=== PATIENT | female | born 1930 | race African-American/Black ===

== ENCOUNTER 2018-10-15 02:38 | Inpatient (IN) | payer OTHER, MEDICAID ==
[2018-10-15] VITALS (10 sets, daily range): BP systolic 92–179; BP diastolic 34–98
[~2018-10-15] VITALS: Ht 170.2 cm; Wt 53.7 kg
[~2018-10-15 02:38] MED LIST: AMLO10TA80 PO; ASPIRIN; CLAR10 PO; COLACE; GABAPENTIN; HYDR30CR80 TP; LORA10TA7 PO; LOSA1TAB34 PO; LOSARTAN; VICODIN
[2018-10-15] MEDS ORDERED: ALBUTEROL (0.083%) 2.5MG/3ML NEB HHN STA (03:18)
[2018-10-15] MEDS ORDERED: IPRATROPIUM BROMIDE (0.02%) 0.5MG/2.5ML NEB HHN STA (03:18)
[2018-10-15 03:57] LABS: BASOPHILS % 0.9 % (0.0-2.0); EOSINOPHILS % 2.3 % (0.0-5.0); HEMATOCRIT. 36.8 % (36.0-48.0); HEMOGLOBIN. 11.6 g/dL (12.0-16.0); MEAN CORPUSCULAR HEMOGLOBIN 25.6 pg (28.0-32.0); MEAN CORPUSCULAR VOLUME 81.2 fL (81.0-99.0); MEAN PLATELET VOLUME 9.4 fl (7.4-10.4); MONOCYTES % 5.3 % (2.0-8.0); NEUTROPHILS % 53.5 % (40.0-76.0); PLATELET 177 x1000/uL (130-400); RED BLOOD CELL COUNT 4.53 mill/uL (4.2-5.4); RED CELL DISTRIBUTION WIDTH 16.4 % (11.6-14.6)
[2018-10-15 04:10] LABS: CHLORIDE 114 mEq/L (98-107)
[2018-10-15] MEDS ORDERED: IPRATROPIUM/ALBUTEROL 0.5-3(2.5)MG/3ML NEB INH PRN (09:30)
[2018-10-15] MEDS ORDERED: ACETAMINOPHEN 325MG TABLET PO PRN (09:30)
[2018-10-15] MEDS ORDERED: CLONIDINE 0.1MG TABLET PO PRN (09:30)
[2018-10-15] MEDS ORDERED: MAGNESIUM/ALUMINUM HYDROXIDE/SIMETHICONE 30ML UDC PO PRN (09:30)
[2018-10-15] MEDS ORDERED: GUAIFENESIN 200MG/10ML SUGAR FREE UDC PO PRN (09:30)
[2018-10-15] MEDS ORDERED: ONDANSETRON HCL 4MG/2ML INJ IV PRN (09:30)
[2018-10-15] MEDS ORDERED: DIPHENHYDRAMINE 50MG/ML VIAL IV PRN (09:30)
[2018-10-15 09:45] LABS: PHOSPHORUS 2.3 mg/dL (2.5-4.9)
[2018-10-15] MEDS ORDERED: ENOXAPARIN 30MG/0.3ML SYR SUBCUT SCH (10:15)
[2018-10-15 15:19] LABS: CREATINE KINASE MB FRACTION 1.5 ng/mL (0.5-3.6)
[2018-10-15] MEDS: FUROSEMIDE 20MG/2ML VIAL IVP SCH (15:53)
[2018-10-15] MEDS: DILTIAZEM HCL 30MG TABLET PO SCH (21:53)
[2018-10-15] MEDS: NITROGLYCERIN OINT 1GM/INCH UDPKT TD SCH (21:53)
[2018-10-15] MEDS: HYDROCODONE/ACETAMINOPHEN 5/325MG TABLET PO PRN (22:05)
[2018-10-16] VITALS (14 sets, daily range): BP systolic 107–140; BP diastolic 54–93
[2018-10-16 00:22] LABS: CREATINE KINASE MB FRACTION 1.4 ng/mL (0.5-3.6)
[2018-10-16] MEDS: NITROGLYCERIN OINT 1GM/INCH UDPKT TD SCH ×3 (05:15→21:14)
[2018-10-16] MEDS: DILTIAZEM HCL 30MG TABLET PO SCH ×3 (05:30→21:15)
[2018-10-16 05:56] LABS: CHLORIDE 114 mEq/L (98-107)
[2018-10-16 06:03] LABS: EOSINOPHILS % 4.5 % (0.0-5.0); HEMATOCRIT. 33.9 % (36.0-48.0); LYMPHOCYTES % 46.9 % (20.0-50.0); MEAN CORPUSCULAR HEMOGLOBIN 25.9 pg (28.0-32.0); MEAN PLATELET VOLUME 9.4 fl (7.4-10.4); NEUTROPHILS % 41.6 % (40.0-76.0); PLATELET 172 x1000/uL (130-400); RED BLOOD CELL COUNT 4.24 mill/uL (4.2-5.4); RED CELL DISTRIBUTION WIDTH 15.9 % (11.6-14.6)
[2018-10-16 06:05] LABS: LDL CHOLESTEROL 53 mg/dL (5-100)
[2018-10-16 06:07] LABS: HDL CHOLESTEROL 57 mg/dL (40-59)
[2018-10-16] MEDS: ENOXAPARIN 30MG/0.3ML SYR SUBCUT SCH (08:49)
[2018-10-16] MEDS: FUROSEMIDE 20MG/2ML VIAL IVP SCH (08:49)
[2018-10-16] MEDS: SIMETHICONE 80MG TABLET CHEW PO SCH ×3 (13:31→21:14)
[2018-10-16] MEDS: PHENYLEPHRINE/SHK LV/MO/PET,WH RECTAL OINT 28GM PR SCH ×2 (17:09→23:42)
[2018-10-16] MEDS: PSEUDOEPHEDRINE HCL 30MG TABLET PO PRN (18:01)
[2018-10-16] MEDS: DOCUSATE SODIUM 100MG CAPSULE PO PRN (18:01)
[2018-10-16] MEDS: HYDROCODONE/ACETAMINOPHEN 5/325MG TABLET PO PRN (21:20)
[2018-10-17] VITALS (11 sets, daily range): BP systolic 109–128; BP diastolic 47–85
[2018-10-17] MEDS: DILTIAZEM HCL 30MG TABLET PO SCH (06:00)
[2018-10-17] MEDS: NITROGLYCERIN OINT 1GM/INCH UDPKT TD SCH (06:03)
[2018-10-17] MEDS: PHENYLEPHRINE/SHK LV/MO/PET,WH RECTAL OINT 28GM PR SCH ×3 (06:04→17:31)
[2018-10-17 06:24] LABS: HEMATOCRIT. 35.3 % (36.0-48.0); HEMOGLOBIN. 11.3 g/dL (12.0-16.0); LYMPHOCYTES % 45.8 % (20.0-50.0); MEAN CORPUSCULAR HEMOGLOBIN 25.8 pg (28.0-32.0); MEAN CORPUSCULAR VOLUME 80.9 fL (81.0-99.0); MEAN PLATELET VOLUME 9.5 fl (7.4-10.4); MONOCYTES % 7.1 % (2.0-8.0); NEUTROPHILS % 40.1 % (40.0-76.0); PLATELET 176 x1000/uL (130-400); RED BLOOD CELL COUNT 4.36 mill/uL (4.2-5.4); RED CELL DISTRIBUTION WIDTH 16.3 % (11.6-14.6)
[2018-10-17] MEDS ORDERED: LIDOCAINE HCL 1% 20ML VIAL (Pyxis) INJ ONE (08:27)
[2018-10-17] MEDS: ENOXAPARIN 30MG/0.3ML SYR SUBCUT SCH (09:19)
[2018-10-17] MEDS: FUROSEMIDE 20MG/2ML VIAL IVP SCH (09:19)
[2018-10-17] MEDS: SIMETHICONE 80MG TABLET CHEW PO SCH ×4 (09:20→21:03)
[2018-10-17] MEDS: CLOPIDOGREL 75MG TABLET PO SCH (10:54)
[2018-10-17] MEDS: ASPIRIN 81MG EC TABLET PO SCH (10:54)
[2018-10-17] MEDS: DILTIAZEM HCL 120MG CAPSULE CD 24HR PO SCH (10:55)
[2018-10-17] MEDS: PSEUDOEPHEDRINE HCL 30MG TABLET PO PRN (10:58)
[2018-10-17] MEDS: DOCUSATE SODIUM 100MG CAPSULE PO PRN (10:58)
[2018-10-17] MEDS: HYDROCODONE/ACETAMINOPHEN 5/325MG TABLET PO PRN (21:12)
[2018-10-18] VITALS (9 sets, daily range): BP systolic 99–142; BP diastolic 39–73
[2018-10-18] MEDS: PHENYLEPHRINE/SHK LV/MO/PET,WH RECTAL OINT 28GM PR SCH ×3 (06:00→12:02)
[2018-10-18 06:30] LABS: BASOPHILS % 0.7 % (0.0-2.0); EOSINOPHILS % 5.7 % (0.0-5.0); HEMATOCRIT. 34.2 % (36.0-48.0); LYMPHOCYTES % 49.4 % (20.0-50.0); MEAN CORPUSCULAR HEMOGLOBIN 26.2 pg (28.0-32.0); MEAN CORPUSCULAR VOLUME 81.3 fL (81.0-99.0); MEAN PLATELET VOLUME 9.4 fl (7.4-10.4); MONOCYTES % 6.4 % (2.0-8.0); NEUTROPHILS % 37.8 % (40.0-76.0); PLATELET 172 x1000/uL (130-400); RED BLOOD CELL COUNT 4.21 mill/uL (4.2-5.4); RED CELL DISTRIBUTION WIDTH 16.2 % (11.6-14.6)
[2018-10-18] MEDS: CLOPIDOGREL 75MG TABLET PO SCH (08:37)
[2018-10-18] MEDS: ENOXAPARIN 30MG/0.3ML SYR SUBCUT SCH (08:37)
[2018-10-18] MEDS: ASPIRIN 81MG EC TABLET PO SCH (08:37)
[2018-10-18] MEDS: DILTIAZEM HCL 120MG CAPSULE CD 24HR PO SCH (08:37)
[2018-10-18] MEDS: SIMETHICONE 80MG TABLET CHEW PO SCH ×2 (08:37→13:24)
== END 2018-10-18 15:05 | disposition home or self-care (01) | DRG 205 ==
LOC: ER 02:38 → 5EST 05:34 → CANRESERV 07:04 → ENRESERV 07:04
PROVIDERS: ADMIT Internal Medicine; ATTEND Internal Medicine
DX: M94.0 Chondrocostal junction syndrome [Tietze] (principal); I50.31 Acute diastolic (congestive) heart failure; I13.0 Hypertensive heart and chronic kidney disease with heart failure and stage 1 through stage 4 chronic kidney disease, or unspecified chronic kidney disease; I42.9 Cardiomyopathy, unspecified; I50.9 Heart failure, unspecified; J44.9 Chronic obstructive pulmonary disease, unspecified; I27.20 Pulmonary hypertension, unspecified; J40 Bronchitis, not specified as acute or chronic; N28.9 Disorder of kidney and ureter, unspecified; F17.200 Nicotine dependence, unspecified, uncomplicated; K21.9 Gastro-esophageal reflux disease without esophagitis; I25.10 Atherosclerotic heart disease of native coronary artery without angina pectoris; N18.2 Chronic kidney disease, stage 2 (mild); M19.90 Unspecified osteoarthritis, unspecified site; Z79.899 Other long term (current) drug therapy; Z79.82 Long term (current) use of aspirin; Z88.2 Allergy status to sulfonamides; Z88.0 Allergy status to penicillin
CPT/HCPCS: 36415; 71045; 80048; 80061; 82550; 82553; 83605; 83735; 83880; 84100; 84443; 84484; 93005; 93306; 93970; 94640; 96372; 99291; J1650; J1940; J2405; J3490; J7611

== ENCOUNTER 2020-08-23 14:38 | Emergency (ER) | payer OTHER, MEDICAID ==
[~2020-08-23] VITALS: Ht 165.1 cm; Wt 46.0 kg
[~2020-08-23 14:38] MED LIST changes: +ALBU6.7H9 INH; -AMLO10TA80 PO; +ASPI-1406 MT; -ASPIRIN; +CARV3.1242 MT; +CHOL400D7 PO; -CLAR10 PO; -COLACE; +CRES10 MT; +FLUT100B INH; +FURO-152 MT; -GABAPENTIN; -HYDR30CR80 TP; +LORA10TA7 MT; -LORA10TA7 PO; -LOSA1TAB34 PO; -LOSARTAN; +PANT40GR; -VICODIN
[2020-08-23] MEDS ORDERED: ALBUTEROL (0.083%) 2.5MG/3ML NEB HHN STA (16:41)
[2020-08-23] MEDS ORDERED: METHYLPREDNISOLONE SOD SUCC 125 MG/2 ML VIAL IV STA (16:41)
[2020-08-23] MEDS ORDERED: IPRATROPIUM BROMIDE (0.02%) 0.5MG/2.5ML NEB HHN STA (16:41)
[2020-08-23 17:15] LABS: BASOPHILS % 0.3 % (0.0-2.0); HEMATOCRIT. 34.7 % (36.0-48.0); HEMOGLOBIN. 11.1 g/dL (12.0-16.0); LYMPHOCYTES % 29.9 % (20.0-50.0); MEAN CORPUSCULAR HEMOGLOBIN 26.8 pg (28.0-32.0); MEAN CORPUSCULAR VOLUME 83.5 fL (81.0-99.0); MEAN PLATELET VOLUME 9.1 fl (7.4-10.4); MONOCYTES % 5.2 % (2.0-8.0); NEUTROPHILS % 64.6 % (40.0-76.0); PLATELET 198 x1000/uL (130-400); RED BLOOD CELL COUNT 4.16 mill/uL (4.2-5.4); RED CELL DISTRIBUTION WIDTH 16.9 % (11.6-14.6)
[2020-08-23 17:25] LABS: CHLORIDE 106 mEq/L (98-107)
[2020-08-23] MEDS ORDERED: LEVOFLOXACIN 750MG PREMIX 150 ML IV ONE (17:30)
[2020-08-24 00:30] VITALS: BP 128/35
== END 2020-08-24 00:56 | disposition short-term general hospital (02) ==
LOC: ER 14:38 → CANBEDREQ 22:13 → ER 08-24 00:56
DX: J44.1 Chronic obstructive pulmonary disease with (acute) exacerbation (principal); I11.0 Hypertensive heart disease with heart failure; I50.9 Heart failure, unspecified; Z79.82 Long term (current) use of aspirin; Z79.899 Other long term (current) drug therapy; Z88.0 Allergy status to penicillin; Z88.2 Allergy status to sulfonamides; Z20.822 Contact with and (suspected) exposure to COVID-19
CPT/HCPCS: 36415; 71045; 80053; 83880; 84484; 85025; 87426; 93005; 94640; 96365; 96366; 96375; 99285; J1956; J2930

== ENCOUNTER 2020-08-29 21:33 | Inpatient (IN) | payer OTHER, MEDICARE, MEDICAID ==
[~2020-08-29] VITALS: Ht 162.6 cm; Wt 45.4 kg
[2020-08-29 22:51] LABS: BASOPHILS % 0.4 % (0.0-2.0); HEMOGLOBIN. 11.3 g/dL (12.0-16.0); LYMPHOCYTES % 29.6 % (20.0-50.0); MEAN CORPUSCULAR VOLUME 80.8 fL (81.0-99.0); MONOCYTES % 8.2 % (2.0-8.0); NEUTROPHILS % 60.8 % (40.0-76.0); PLATELET 207 x1000/uL (130-400); RED BLOOD CELL COUNT 4.34 mill/uL (4.2-5.4); RED CELL DISTRIBUTION WIDTH 16.4 % (11.6-14.6)
[2020-08-29 22:55] LABS: CHLORIDE 105 mEq/L (98-107)
[2020-08-29] MEDS ORDERED: ENOXAPARIN 60MG/0.6ML SYR SUBCUT ONE (23:45)
[2020-08-29] MEDS ORDERED: ASPIRIN 325MG EC TABLET PO ONE (23:45)
[2020-08-30] VITALS (8 sets, daily range): BP systolic 96–120; BP diastolic 28–72
[2020-08-30] MEDS ORDERED: ACETAMINOPHEN WITH CODEINE 300/30MG TABLET PO ONE
[2020-08-30] MEDS ORDERED: SODIUM CHLORIDE 0.9% 1,000 ML IV NR (02:00)
[2020-08-30] MEDS ORDERED: FUROSEMIDE 20MG/2ML VIAL IVP NR (10:00)
[2020-08-30] MEDS ORDERED: IPRATROPIUM/ALBUTEROL 0.5-3(2.5)MG/3ML NEB HHN PRN (10:00)
[2020-08-30] MEDS ORDERED: ENOXAPARIN 30MG/0.3ML SYR SUBCUT SCH (10:00)
[2020-08-30] MEDS ORDERED: NITROGLYCERIN OINT 1GM/INCH UDPKT TD PRN (11:45)
[2020-08-30] MEDS: TRAMADOL 50MG TABLET PO PRN ×2 (15:26→21:51)
[2020-08-30 16:11] LABS: CLARITY URINE CLEAR (CLEAR); COLOR URINE YELLOW (YELLOW); KETONES URINE NEGATIVE (NEGATIVE); LEUKOCYTE ESTERASE URINE TRACE (NEGATIVE); NITRITE URINE NEGATIVE (NEGATIVE); OCCULT BLOOD URINE NEGATIVE (NEGATIVE); PROTEIN URINE NEGATIVE (NEGATIVE); SPECIFIC GRAVITY URINE 1.013 (1.005-1.030); UROBILINOGEN URINE 0.2 E.U./dL (0.2-1.0)
[2020-08-30] MEDS: DOCUSATE SODIUM 100MG CAPSULE PO SCH (21:48)
[2020-08-30] MEDS: LORATADINE 10MG TABLET PO SCH (21:49)
[2020-08-30] MEDS: FLUTICASONE PROPIONATE 50MCG/SPRAY BOTTLE BOTHNSTRLS SCH (21:49)
[2020-08-31] VITALS (15 sets, daily range): BP systolic 92–128; BP diastolic 44–63
[2020-08-31 07:00] LABS: BASOPHILS % 0.4 % (0.0-2.0); LYMPHOCYTES % 27.4 % (20.0-50.0); MEAN CORPUSCULAR HEMOGLOBIN 26.5 pg (28.0-32.0); MEAN CORPUSCULAR VOLUME 82.2 fL (81.0-99.0); MEAN PLATELET VOLUME 9.3 fl (7.4-10.4); MONOCYTES % 9.1 % (2.0-8.0); NEUTROPHILS % 61.1 % (40.0-76.0); PLATELET 200 x1000/uL (130-400); RED BLOOD CELL COUNT 3.77 mill/uL (4.2-5.4); RED CELL DISTRIBUTION WIDTH 16.5 % (11.6-14.6)
[2020-08-31] MEDS: DOCUSATE SODIUM 100MG CAPSULE PO SCH ×2 (10:38→17:37)
[2020-08-31] MEDS: FLUTICASONE PROPIONATE 50MCG/SPRAY BOTTLE BOTHNSTRLS SCH (10:38)
[2020-08-31] MEDS: ASPIRIN 81MG TABLET PO SCH (10:38)
[2020-08-31] MEDS: LORATADINE 10MG TABLET PO SCH (10:38)
[2020-08-31] MEDS: ENOXAPARIN 40MG/0.4ML SYR SUBCUT SCH (10:39)
[2020-09-01] VITALS (9 sets, daily range): BP systolic 104–138; BP diastolic 47–64
[2020-09-01 07:17] LABS: BASOPHILS % 0.6 % (0.0-2.0); EOSINOPHILS % 2.3 % (0.0-5.0); HEMATOCRIT. 32.2 % (36.0-48.0); HEMOGLOBIN. 10.3 g/dL (12.0-16.0); LYMPHOCYTES % 30.8 % (20.0-50.0); MEAN CORPUSCULAR HEMOGLOBIN 26.4 pg (28.0-32.0); MEAN CORPUSCULAR VOLUME 82.3 fL (81.0-99.0); MEAN PLATELET VOLUME 9.4 fl (7.4-10.4); MONOCYTES % 7.9 % (2.0-8.0); NEUTROPHILS % 58.4 % (40.0-76.0); PLATELET 219 x1000/uL (130-400); RED BLOOD CELL COUNT 3.91 mill/uL (4.2-5.4); RED CELL DISTRIBUTION WIDTH 16.7 % (11.6-14.6)
[2020-09-01] MEDS: LORATADINE 10MG TABLET PO SCH (08:14)
[2020-09-01] MEDS: ASPIRIN 81MG TABLET PO SCH (08:14)
[2020-09-01] MEDS: DOCUSATE SODIUM 100MG CAPSULE PO SCH (08:14)
[2020-09-01] MEDS: FLUTICASONE PROPIONATE 50MCG/SPRAY BOTTLE BOTHNSTRLS SCH (08:14)
[2020-09-01] MEDS ORDERED: AMLODIPINE 2.5MG TABLET PO SCH (09:00)
[2020-09-01] MEDS: ENOXAPARIN 40MG/0.4ML SYR SUBCUT SCH (11:43)
[2020-09-01] MEDS ORDERED: ASCORBIC ACID 500 MG TABLET PO SCH (13:00)
[2020-09-01] MEDS ORDERED: ZINC SULFATE 220 MG ( 50 ) CAPSULE PO SCH (13:00)
[2020-09-01] MEDS: TRAMADOL 50MG TABLET PO PRN (15:52)
== END 2020-09-01 17:15 | disposition home or self-care (01) | DRG 280 ==
LOC: ER 21:33 → 3WST 08-30 02:28 → ENRESERV 08-30 07:23
PROVIDERS: ADMIT Internal Medicine; ATTEND Internal Medicine
DX: I21.4 Non-ST elevation (NSTEMI) myocardial infarction (principal); I50.23 Acute on chronic systolic (congestive) heart failure; N17.0 Acute kidney failure with tubular necrosis; I13.0 Hypertensive heart and chronic kidney disease with heart failure and stage 1 through stage 4 chronic kidney disease, or unspecified chronic kidney disease; E44.0 Moderate protein-calorie malnutrition; Z68.1 Body mass index [BMI] 19.9 or less, adult; M94.0 Chondrocostal junction syndrome [Tietze]; E78.5 Hyperlipidemia, unspecified; I44.0 Atrioventricular block, first degree; I48.0 Paroxysmal atrial fibrillation; I27.20 Pulmonary hypertension, unspecified; J44.9 Chronic obstructive pulmonary disease, unspecified; K21.9 Gastro-esophageal reflux disease without esophagitis; I49.1 Atrial premature depolarization; N18.9 Chronic kidney disease, unspecified; Z99.81 Dependence on supplemental oxygen; S30.0XXA Contusion of lower back and pelvis, initial encounter; Z87.891 Personal history of nicotine dependence; I25.2 Old myocardial infarction; Z88.0 Allergy status to penicillin; Z88.2 Allergy status to sulfonamides; X58.XXXA Exposure to other specified factors, initial encounter; Y93.89 Activity, other specified; Y92.89 Other specified places as the place of occurrence of the external cause; Y99.8 Other external cause status
CPT/HCPCS: 36415; 71045; 80048; 80053; 81003; 82040; 83735; 83880; 84134; 84484; 85025; 87426; 93005; 97116; 97162; 97530; 99291; A6261; J1650; J1940